=== PATIENT | male | born 1995 | race Caucasian/White ===

== ENCOUNTER 2024-07-02 | Emergency (ER) | payer SELFPAY ==
[~2024-07-02] VITALS: Ht 172.7 cm; Wt 100.0 kg
[2024-07-02 00:17] VITALS: O2SAT 97
[2024-07-02] MEDS ORDERED: CLIN-194 MT (00:34)
[2024-07-02] MEDS ORDERED: NAPR-1176 MT (00:34)
[2024-07-02] MEDS: IBUPROFEN 800MG TABLET PO ONE (00:54)
[2024-07-02] MEDS: CLINDAMYCIN HCL 150MG CAPSULE PO STA (00:54)
[2024-07-02 00:56] VITALS: BP 137/72; PULSE 78; RESP 20; TEMP 36.7; O2SAT 100
== END 2024-07-02 00:56 | disposition home or self-care (01) ==
LOC: ER
DX: K08.89 Other specified disorders of teeth and supporting structures (principal); Z79.899 Other long term (current) drug therapy; Z79.1 Long term (current) use of non-steroidal anti-inflammatories (NSAID)
CPT/HCPCS: 99283